=== PATIENT | male | born 1960 | race Caucasian/White ===

== ENCOUNTER 2023-03-16 05:06 | Day surgery (SDC) | payer OTHER ==
[~2023-03-16] VITALS: Ht 182.9 cm; Wt 86.2 kg
[2023-03-16] MEDS ORDERED: LIDOCAINE 1% 500 MG/50 ML VIAL ONE (07:38)
[2023-03-16] MEDS ORDERED: BUPIVACAINE-MPF 0.25% 30 ML VIAL INJ ONE (07:38)
[2023-03-16] MEDS ORDERED: DESFLURANE 240 ML BTL INH ONE (07:45)
[2023-03-16] MEDS ORDERED: HYDROGEN PEROXIDE 3% 240 ML BTL TP ONE (07:54)
[2023-03-16] MEDS ORDERED: SUCCINYLCHOLINE CHLORIDE 200 MG/10 ML VIAL IVP ONE (07:59)
[2023-03-16] MEDS ORDERED: ONDANSETRON 4 MG/2 ML VIAL ONE (07:59)
[2023-03-16] MEDS ORDERED: DEXAMETHASONE 4 MG/ML VIAL ONE (07:59)
[2023-03-16] MEDS ORDERED: ROCURONIUM 50 MG/5 ML VIAL IV ONE (07:59)
[2023-03-16] MEDS ORDERED: fentaNYL citrate 0.05 MG/ML VIAL ONE (07:59)
[2023-03-16] MEDS ORDERED: PROPOFOL 200 MG/20 ML VIAL IV ONE (07:59)
[2023-03-16] MEDS ORDERED: KETOROLAC 30 MG/ML VIAL ONE (08:00)
[2023-03-16] MEDS ORDERED: SUGAMMADEX SODIUM 200 MG/2 ML VIAL IV ONE (08:22)
[2023-03-16] MEDS ORDERED: HYDROmorphone 1 MG/ML AMP IVP PRN (08:40)
== END 2023-03-16 09:50 | disposition home or self-care (01) ==
LOC: MDS 05:06 → MMU 06:30 → MDS 09:50
PROVIDERS: ATTEND Surgery
DX: K60.3 Anal fistula (principal); E11.9 Type 2 diabetes mellitus without complications; E78.00 Pure hypercholesterolemia, unspecified
CPT/HCPCS: 46020; 71045; 93005; J0330; J1100; J1885; J2001; J2405; J2704; J3010; J3490; J7120